=== PATIENT | female | born 1960 | race Hispanic/Latino ===

== ENCOUNTER 2017-08-18 15:40 | Emergency (ER) | payer SELFPAY ==
[~2017-08-18] VITALS: Ht 162.6 cm; Wt 77.1 kg
[2017-08-18 16:14] LABS: HEMATOCRIT 43.6 % (36.0-46.0); MCH 29.1 PG (29.0-34.0); MCHC 33.9 G/DL (30.0-36.0); MCV 85.8 FL (83-99); MEAN PLAT.VOLUME 10.2 uM^3 (9.5-12.4); PLATELET COUNT 359 K/uL (156-360); RBC DIS.WIDTH-SD 40.9 % (39-53); RED BLOOD COUNT 5.08 M/uL (3.80-5.20); WHITE BLOOD COUNT 9.5 K/uL (4.1-10.2)
[2017-08-18 16:22] LABS: CHLORIDE 104 mEq/L (99-109); POTASSIUM 3.6 mEq/L (3.7-5.4); SODIUM 135 mEq/L (136-147)
[2017-08-18 16:24] LABS: GLUCOSE 105 mg/dL (70-99)
[2017-08-18 16:25] LABS: ANION GAP 8 MEQ/L (2-14)
[2017-08-18 16:26] LABS: TOTAL BILIRUBIN 0.5 mg/dL (0.0-1.0)
[2017-08-18 16:28] LABS: ALKALINE PHOSPHATASE 65 IU/L (3-129)
[2017-08-18 16:29] LABS: UREA NITROGEN (BUN) 20 mg/dL (9-23)
[2017-08-18 16:31] LABS: GFR ESTIMATE (CALCULATED) > 59 mL/min/
[2017-08-18 16:36] LABS: QUANTITATIVE HCG < 4.0 MIU/ML
[2017-08-18 17:23] LABS: ADD MIUA? NO; BILIRUBIN NEGATIVE; BLOOD NEGATIVE; COLOR YELLOW ((YELLOW)); GLUCOSE (STRIP) NEGATIVE; KETONES 20; LEUKOCYTES NEGATIVE; NITRITE NEGATIVE; PROTEIN (STRIP) NEGATIVE; SPECIFIC GRAVITY 1.025 (1.000-1.030); UCUL ADDED? NO; UROBILINOGEN 0.2 MG/DL (0.2-1.0)
[2017-08-18] MEDS ORDERED: FLAGYL500 MG PO (20:30)
[2017-08-18] MEDS ORDERED: PERCOCET 5/31 TABLET PO (20:30)
[2017-08-18] MEDS ORDERED: CIPRO500 MG PO (20:30)
[2017-08-18 21:17] VITALS: BP 145/67
== END 2017-08-18 21:17 | disposition home or self-care (01) ==
LOC: EME 15:40
DX: R10.9 Unspecified abdominal pain (principal); K80.20 Calculus of gallbladder without cholecystitis without obstruction; R51 Headache; K59.00 Constipation, unspecified; E11.9 Type 2 diabetes mellitus without complications; Z79.4 Long term (current) use of insulin; Z88.0 Allergy status to penicillin
CPT/HCPCS: 74176; 80053; 81003; 84702; 85027; 99281; 99284; J1885

== ENCOUNTER → 2017-08-25 | Outpatient (CLI) | payer SELFPAY ==
[~2017-08-25] MED LIST: CIPRO500 MG PO; FLAGYL500 MG PO; HYDROCODON-ACE1 EA11 PO; NOVOLIN,HU100 UNITS/ SC; OXYCODONE HCL5 MG PO; PERCOCET 5/31 TABLET PO
== END | disposition home or self-care (01) ==
LOC: CDC 12:28
DX: Z01.810 Encounter for preprocedural cardiovascular examination (principal); K80.20 Calculus of gallbladder without cholecystitis without obstruction; I44.4 Left anterior fascicular block
CPT/HCPCS: 93000

== ENCOUNTER 2017-08-26 11:04 | Day surgery (SDC) | payer SELFPAY ==
[~2017-08-26] VITALS: Ht 162.6 cm; Wt 72.6 kg
[~2017-08-26 11:04] MED LIST changes: -HYDROCODON-ACE1 EA11 PO; -OXYCODONE HCL5 MG PO
[2017-08-26 11:48] LABS: POINT-OF-CARE METER ID UU14174212
[2017-08-26 11:51] VITALS: BP 143/67
[2017-08-26] MEDS ORDERED: HYDROCODON-ACE1 EA11 PO (14:50)
[2017-08-26] MEDS ORDERED: OXYCODONE HCL5 MG PO (14:50)
[2017-08-26 15:20] LABS: POINT-OF-CARE METER ID UU13113675; POINT-OF-CARE USER ID 515036437
[2017-08-26 16:26] VITALS: BP 140/63
[2017-08-26 17:30] VITALS: BP 124/58
[2017-08-26 18:07] VITALS: BP 130/60
== END 2017-08-26 18:24 | disposition home or self-care (01) ==
LOC: SDC
PROVIDERS: Surgery
DX: K80.10 Calculus of gallbladder with chronic cholecystitis without obstruction (principal); K66.0 Peritoneal adhesions (postprocedural) (postinfection); K82.8 Other specified diseases of gallbladder; E11.49 Type 2 diabetes mellitus with other diabetic neurological complication; Z79.4 Long term (current) use of insulin; Z88.0 Allergy status to penicillin
CPT/HCPCS: 82948; 88304; J0330; J1170; J1644; J1885; J2250; J2405; J2710; J3010; Q0175; S0020